=== PATIENT | female | born 1960 | race Caucasian/White ===

== ENCOUNTER → 2024-11-15 11:34 | Outpatient (REF) | payer MEDICARE, OTHER, SELFPAY | LOC: RAD 11:34 | PROVIDERS: ATTENDING PHYSICIAN Surgery; FAMILY PHYSICIAN Internal Medicine | DX: K56.1 Intussusception (principal) | CPT/HCPCS: 74177; Q9967 ==

== ENCOUNTER → 2025-01-30 13:19 | Outpatient (REF) | payer MEDICARE, OTHER, SELFPAY | LOC: RAD 13:19 | PROVIDERS: ATTENDING PHYSICIAN Internal Medicine Gastroenterology; FAMILY PHYSICIAN Internal Medicine | DX: R10.9 Unspecified abdominal pain (principal) | CPT/HCPCS: 74177; Q9967 ==